=== PATIENT | female | born 1970 | race Caucasian/White ===

== ENCOUNTER → 2016-11-02 | Outpatient (CLI) | payer OTHER ==
[~2016-11-02] MED LIST: AMOXICILLIN875 MG PO; ATORVASTATIN CA10 MG PO; METHYLPREDNISOLO4 M1 PO; MUCINEX DM1 TAB.SR . PO; NEURONTIN; NEURONTIN800 MG PO; PREDNISONE PO; PROAIR HFA8.5 GM INH; PROMETHAZINE D118 ML PO; ZESTRIL10 M1 PO
--- NOTE | ~2016-11-02 | MY11 ---
[facility] A Service of [facility] RADIOLOGY TEXT RESULTS PATIENT: RENATA MORTON LOCATION: [facility] : 70 UNIT #: [id number] AGE: [address]: Lexii Craven APRN SEX: F ORDER DR: [id number] [address] [id number] MR#: [id number] Acc #: [id number] NAME: RENATA MORTON : 1970 SEX: F STUDY DATE/TIME: 11/02/2016 14:34 UNIT: [facility] ROOM: STUDY DESCRIPTION: MY Mammogram Screening Dig Don Attending Physician: Lexii Craven A.P.R.N. Ordering Physician: Lexii Craven A.P.R.N. MEDICAL IMAGING REPORT This report is preliminary unless electronic signature is present. EXAM Digital screening mammogram 11/02/2016 HISTORY 46-year-old woman, positive family history, maternal aunt age 50. Annual screen. COMPARISON STUDIES Comparison 06/13/2007, 02/11/2014 FINDINGS Digital imaging of each breast was completed utilizing screening protocol. Review includes FDA-approved CAD device. Breast parenchyma is fatty replaced and normal. There is no breast mass. There are no suspicious microcalcifications and no architectural deformity. IMPRESSION Negative mammogram. Annual screening recommended. BIRADS 1 Patients over the age of 40 are entered into a reminder system with target due date for the next mammogram. A result letter will also be sent to the patient. BIRADS: 1 - Negative Dictated by... Brayan Woods M.D. THIS IS AN ELECTRONICALLY VERIFIED REPORT Brayan Woods M.D. at 11/05/2016 8:03 AM WILLIAM/collin [facility] A Service of [facility] & [facility] RADIOLOGY TEXT RESULTS PATIENT: RENATA MORTNO LOCATION: [facility] : 70 UNIT #: [id number] AGE: [address]: Lexii Craven APRN SEX: F ORDER DR: TD: 11/02/2016 18:13 JOB #: [id number] MEDICAL IMAGING REPORT
== END | disposition home or self-care (01) ==
LOC: SMAM 11:23
DX: Z12.31 Encounter for screening mammogram for malignant neoplasm of breast (principal); Z80.3 Family history of malignant neoplasm of breast
CPT/HCPCS: G0202

== ENCOUNTER 2016-11-04 21:43 | Emergency (ER) | payer OTHER ==
--- NOTE | ~2016-11-04 | EKG ---
PATIENT: RENATA MORTON UNIT #: [id number] Ventricular Rate: 102 BPM Atrial Rate: 102 BPM P-R Interval: 142 ms QRS Duration: 86 ms Q-T Interval: 328 ms QTC Calculation(Bezet): 427 ms P [place]: 65 degrees Calculated R [place]: -7 degrees Calculated T [place]: 53 degrees Diagnosis Line: Sinus tachycardia Diagnosis Line: Otherwise normal ECG Diagnosis Line: No previous ECGs available Diagnosis Line: Confirmed by GERA BENJAMIN MD ([id number]) on 11/09/2016 Diagnosis Line: 9:38:31 AM INTERPRETING MD: CASSIDY ARCHER
--- NOTE | ~2016-11-04 | CR72 ---
[facility]. [facility] A Service of [facility] & [facility] RADIOLOGY TEXT RESULTS PATIENT: RENATA MORTON LOCATION: SED : 70 UNIT #: [id number] AGE: [address]: Jett Crouch MD SEX: F ORDER DR: [id number] [place] [id number] E MR#: [id number] Acc #: [id number] NAME: RENATA MORTON : 1970 SEX: F STUDY DATE/TIME: 11/04/2016 22:20 UNIT: SED ROOM: STUDY DESCRIPTION: CR Chest Single View Portable Attending Physician: Jett Crouch M.D. Ordering Physician: Jett Crouch M.D. Primary Care Physician: Lexii Craven A.P.R.N. MEDICAL IMAGING REPORT This report is preliminary unless electronic signature is present. EXAM Portable chest. HISTORY Left side chest pain and left arm pain today. FINDINGS The cardiac size and pulmonary vascularity within normal limits. No airspace infiltrates or effusions are identified. Under penetration of the lung bases. IMPRESSION No acute findings. Dictated by... Jon Ventura M.D. THIS IS AN ELECTRONICALLY VERIFIED REPORT Jon Ventura M.D. at 11/05/2016 12:40 PM DFL/gz TD: 11/05/2016 11:49 JOB #: [id number] MEDICAL IMAGING REPORT
[2016-11-04 21:44] LABS: BASOPHIL# 0.1 X10e3 (0-0.3); BASOPHIL% 0.8 % (0-2.5); EOSINOPHIL# 0.1 X10e3 (0-0.7); EOSINOPHIL% 1.1 % (0.0-7.0); HEMATOCRIT 42.6 % (35.0-45.0); HEMOGLOBIN 13.5 gm/dL (12.0-16.0); LYMPHOCYTE# 4.3 X10e3 (1.0-3.5); LYMPHOCYTE% 31.1 % (17.0-45.0); MEAN CELL VOLUME 84.5 FL (83-96); MEAN CORPUSCULAR HEMOGLOBIN 26.8 PG (28-34); MEAN CORPUSCULAR HGB CONC 31.7 g/dL (30-36); MEAN PLATELET VOLUME 7.9 FL (6.5-11.5); MONOCYTE# 0.9 X10e3 (0-1.0); MONOCYTE% 6.6 % (3.0-12.0); NEUTROPHIL# 8.3 X10e3 (1.5-7.1); NEUTROPHIL% 60.4 % (40-75); PLATELET COUNT 263 X10e3 (140-420); RED BLOOD COUNT 5.04 X10e (3.90-5.30); RED CELL DISTRIBUTION WIDTH 14.1 % (11.0-15.5); WHITE BLOOD COUNT 13.8 X10e3 (4.0-10.5)
[2016-11-04 21:48] LABS: DIFF IND NO
[2016-11-04 22:00] LABS: POC - CKMB <1.0 ng/mL (0.0-7.9); POC - MYOGLOBIN 30.5 ng/mL (0.0-169.0); POC - TROPONIN <0.05 ng/mL (<=0.05)
[2016-11-04 22:06] LABS: ALBUMIN SERUM 3.8 g/dL (3.5-5.0); ALKALINE PHOSPHATASE 85 U/L (32-92); ALT (SGPT) 24 U/L (10-40); AST (SGOT) 16 U/L (10-42); BILIRUBIN, DIRECT 0.1 mg/dL (0.0-0.2); BILIRUBIN,INDIRECT 0.5 mg/dL (0.0-0.9); BILIRUBIN,TOTAL 0.6 mg/dL (0.2-2.0); BLOOD UREA NITROGEN 16 mg/dL (9-23); BUN/CREATININE RATIO 22.85; CALCIUM SERUM 8.6 mg/dL (8.4-10.2); CARBON DIOXIDE 25 mmol/L (22-31); CHLORIDE 101 mmol/L (100-111); CREATININE SERUM 0.7 mg/dL (0.6-1.4); GLOM FILT RATE Estimated ABOVE60 mL/min (>60); GLUCOSE FASTING 143 mg/dL (70-110); POTASSIUM 3.3 mmol/L (3.5-5.1); PROTEIN TOTAL SERUM 6.9 g/dL (6.0-8.3); SODIUM 134 mmol/L (135-145)
[2016-11-04 22:07] LABS: PROTHROMBIN TIME (PATIENT) 10.9 SECONDS (9.5-12.4)
[2016-11-04 22:14] LABS: PARTIAL THROMBOPLASTIN TIME 24.5 SECONDS (25.6-38.1)
[2016-11-04 23:57] LABS: POC - CKMB <1.0 ng/mL (0.0-7.9); POC - TROPONIN <0.05 ng/mL (<=0.05)
== END 2016-11-05 00:24 | disposition home or self-care (01) ==
LOC: SED 21:43
PROVIDERS: Emergency Medicine
DX: R07.89 Other chest pain (principal); J45.909 Unspecified asthma, uncomplicated; F41.9 Anxiety disorder, unspecified
CPT/HCPCS: 36415; 71010; 80048; 80076; 82553; 83874; 84484; 85025; 85610; 85730; 93005; 96374; 99284; J2060